=== PATIENT | male | born 1945 | race Caucasian/White ===

== ENCOUNTER 2017-06-17 07:45 | Outpatient (CLI) | payer MEDICARE ==
--- NOTE | 2017-06-17 11:51 | NM ---
NUCLEAR MEDICINE CARDIAC STRESS TEST WITH EJECTION FRACTION: HISTORY: Chest pain, unspecified. COMPARISON: Stress test dated 12/12/10. FINDINGS: Exam was performed after the intravenous administration of 29.4 and 10.3 mCi technetium-99m sestamibi , respectively, for stress and rest. No scar or ischemia. Normal wall motion. Calculated ejection fraction is 55%. IMPRESSION: Normal examination. POS: JAKE
[2017-06-17] MEDS ORDERED: ADENOSINE 60 MG/20 ML VIAL ONE (16:25)
== END 2017-06-17 07:46 | disposition home or self-care (01) ==
LOC: NM 07:45
PROVIDERS: ATTEND Internal Medicine
DX: R07.9 Chest pain, unspecified (principal)
CPT/HCPCS: 78452; 93017; A9500; J0153